=== PATIENT | female | born 1960 | race African-American/Black ===

== ENCOUNTER 2018-08-03 12:40 | Emergency (ER) | payer BC, OTHER ==
[2018-08-03 12:57] VITALS: BMI 54.3
[2018-08-03] MEDS ORDERED: amLODIPine BESYLATE 5 MG TABLET (FP) PO ONE (12:58)
[2018-08-03] MEDS ORDERED: ACETAMINOPHEN 500 MG TABLET (FP) PO ONE (12:59)
--- NOTE | 2018-08-03 13:08 | PDOC ---
Attending Attestation - Resident Resident Name: YoSae lindsey - ED Attending Attestation I have performed the following: I have examined & evaluated the patient, The case was reviewed & discussed with the resident, I agree w/resident's findings & plan, Exceptions are as noted - HPI HPI: 08/03/18 13:07 58y F hx of obesity, htn, presenst with concern for elevated BP. Pt states she felt alittle lightheaded and mild head pressure, which is usually indicative of elevated BP, so came in for evaluation. She was at her sisters and didnt have access to a BP monitor. The patient denies any headache, nausea, vomiting, vision changes, numbness, tingling, weakness, chest pain, shortness of breath, leg swelling, hemoptysis, fever, chills, cough, diarrhea, melena, bpr. Patient states she frequently has similar symptoms when her blood pressure is high. Shee states she has been using her blood pressure medications as prescribed including this morning. Rates her blood pressures usually in the high normal range with SBP of 140. PMD is Dr. Eckert. - Physicial Exam PE: 08/03/18 13:46 GENERAL: The patient is awake, alert, and fully oriented, Nontoxic - in no acute distress, morbidly obese HEAD: Normocephalic, atraumatic. EYES: extraocular movements intact, sclera anicteric, conjunctiva clear. ENT: Normal voice, Moist mucous membranes. NECK: Normal range of motion, supple LUNGS: Breath sounds equal, clear to auscultation bilaterally. No wheezes, no rhonchi, no rales. HEART: Regular rate and rhythm, normal S1 and S2 without murmur, rub or gallop. ABDOMEN: Soft, nontender, No guarding, no rebound. . No CVA tenderness EXTREMITIES: Normal range of motion, no edema. NEUROLOGICAL: No facial assymetry, Normal speech, moving all 4 extremities spontaneously and symmetrically PSYCH: Normal mood, normal affect. SKIN: Warm, Dry, normal turgor, - Medical Decision Making 08/03/18 13:47 relatively asypmtomatic htn will ck screening blood work will ck ekg will reassess her BP Heart Score/ECG Review - ECG Impressions Comment:: 08/03/18 13:47 Twelve-lead EKG was performed and reviewed by me. There is normal sinus rhythm with a normal rate. rate of 80 The axis is normal. The intervals are normal. abnormal r wave pgroession
[2018-08-03] MEDS ORDERED: ACETAMINOPHEN 325 MG TABLET (FP) ONE (13:18)
[2018-08-03] MEDS ORDERED: amLODIPine BESYLATE 5 MG TABLET (FP) ONE (13:18)
[2018-08-03 13:34] LABS: INR 0.99 (0.83-1.09); PROTHROMBIN TIME (PATIENT) 11.7 SEC (9.7-13.0)
[2018-08-03 13:43] LABS: BASO % 1.2 % (0-2.0); EOS % 1.6 % (0-4.5); HEMATOCRIT 35.3 % (32.4-45.2); HEMOGLOBIN 11.2 GM/dL (10.7-15.3); LYMPH % 22.4 % (8-40); MCH 25.9 pg (25.7-33.7); MCHC 31.7 g/dl (32.0-36.0); MEAN CELL VOLUME 81.5 fl (80-96); MEAN PLT VOLUME 9.5 fl (7.5-11.1); MONO % 7.7 % (3.8-10.2); NEUT % 67.1 % (42.8-82.8); PLATELET COUNT 262 K/MM3 (134-434); RBC 4.33 M/mm3 (3.60-5.2); RDW 14.9 % (11.6-15.6); WHITE BLOOD COUNT 7.7 K/mm3 (4.0-10.0)
[2018-08-03 13:55] LABS: ALBUMIN 3.1 g/dl (3.4-5.0); ALK PHOS 134 U/L (45-117); ANION GAP 7 MMOL/L (8-16); BILIRUBIN,TOTAL 0.2 mg/dL (0.2-1); BLOOD UREA NITROGEN 12 mg/dL (7-18); CALCIUM 8.1 mg/dL (8.5-10.1); CHLORIDE 105 mmol/L (98-107); CO2 26 mmol/L (21-32); CREATININE 0.8 mg/dL (0.55-1.3); GLUCOSE,RANDOM 130 mg/dL (74-106); MAGNESIUM 1.7 mg/dL (1.8-2.4); POTASSIUM 4.2 mmol/L (3.5-5.1); SGOT/AST 20 U/L (15-37); SGPT/ALT 28 U/L (13-61); SODIUM 138 mmol/L (136-145); TOT PROT 7.2 g/dl (6.4-8.2)
--- NOTE | 2018-08-03 14:15 | PDOC ---
History of Present Illness - General History Source: Patient Exam Limitations: No Limitations - History of Present Illness Initial Comments: 08/03/18 14:11 Patient is a 58F with history of morbid obesity and htn here today with a presyncopal episode. Patient states that she feels like her blood pressure is high because he felt light headed and transiently weak. No confusion afterwards. No vertigo. Patient states that she has a mild headache at this time as well. Denies chest pain, shortness of breath, leg swelling, prior blood clots, recent travel. Denies fevers, chills, nausea, vomiting, cough. <Sae Chandra - Last Filed: 08/03/18 14:17> <Delgado Magaña - Last Filed: 08/03/18 15:25> - General Chief Complaint: Blood Pressure Problem Stated Complaint: BLOOD PRESSURE PROBLEM Time Seen by Provider: 08/03/18 12:50 Past History - Past Medical History Cardiac Disorders: Yes (chest pain, cardiac cath hx) COPD: No HTN: Yes - Surgical History Cardiac Surgery: Yes (CARDIAC CATH) - Immunization History Td Vaccination: No Immunization Up to Date: No - Suicide/Smoking/Psychosocial Hx Smoking Status: No Smoking History: Never smoked Have you smoked in the past 12 months: No Number of Cigarettes Smoked Daily: 0 Hx Alcohol Use: No Drug/Substance Use Hx: No Substance Use Type: None Hx Substance Use Treatment: No <Sae Chandra - Last Filed: 08/03/18 14:17> <Delgado Magaña - Last Filed: 08/03/18 15:25> - Past Medical History Allergies/Adverse Reactions: Allergies Allergy/AdvReac Type Severity Reaction Status Date / Time No Known Allergies Allergy Verified 08/03/18 12:42 Home Medications: Ambulatory Orders Amlodipine Besylate 2.5 mg PO DAILY 08/03/18 Aspirin 81 mg PO ONCE 08/03/18 Carvedilol [Coreg -] 12.5 mg PO BID 08/03/18 Hydrochlorothiazide [Hctz -] 25 mg PO DAILY 08/03/18 Review of Systems - Review of Systems Comments:: 08/03/18 14:13 GENERAL/CONSTITUTIONAL: No fever or chills. No weakness. HEAD, EYES, EARS, NOSE AND THROAT: No change in vision.No sore throat. CARDIOVASCULAR: No chest pain or shortness of breath RESPIRATORY: No cough, wheezing, or hemoptysis. GASTROINTESTINAL: No nausea, vomiting, diarrhea or constipation. GENITOURINARY: No dysuria, frequency, or change in urination. MUSCULOSKELETAL: No joint or muscle swelling or pain. No neck or back pain. SKIN: No rash NEUROLOGIC: No headache, vertigo, loss of consciousness, or change in strength/ sensation. ENDOCRINE: No increased thirst. No abnormal weight change HEMATOLOGIC/LYMPHATIC: No anemia, easy bleeding, or history of blood clots. ALLERGIC/IMMUNOLOGIC: No hives or skin allergy. <Sae Chandra - Last Filed: 08/03/18 14:17> *Physical Exam - Vital Signs Last Vital Signs Temp Pulse Resp BP Pulse Ox 98.4 F 85 20 170/83 98 08/03/18 12:42 08/03/18 12:42 08/03/18 12:42 08/03/18 12:42 08/03/18 12:42 - Physical Exam Comments: 08/03/18 14:13 GENERAL: Awake, alert, and fully oriented, in no acute distress, obese HEAD: No signs of trauma, normocephalic, atraumatic EYES: PERRLA, EOMI, sclera anicteric, conjunctiva clear ENT: Auricles normal inspection, hearing grossly normal, nares patent, oropharynx clear without exudates. Moist mucosa NECK: Normal ROM, supple, no lymphadenopathy, JVD, or masses LUNGS: No distress, speaks full sentences, clear to auscultation bilaterally HEART: Regular rate and rhythm, normal S1 and S2, no murmurs, rubs or gallops, peripheral pulses normal and equal bilaterally. ABDOMEN: Soft, nontender, normoactive bowel sounds. No guarding, no rebound. No masses EXTREMITIES: Normal inspection, Normal range of motion, no edema. No clubbing or cyanosis. NEUROLOGICAL: Cranial nerves II through XII grossly intact. Normal speech, normal gait, no focal sensorimotor deficits SKIN: Warm, Dry, normal turgor, no rashes or lesions noted. <Sae Chandra - Last Filed: 08/03/18 14:17> - Vital Signs Last Vital Signs Temp Pulse Resp BP Pulse Ox 98.4 F 85 20 170/83 98 08/03/18 12:42 08/03/18 12:42 08/03/18 12:42 08/03/18 12:42 08/03/18 12:42 <Delgado Magaña - Last Filed: 08/03/18 15:25> ED Treatment Course - LABORATORY CBC & Chemistry Diagram: 08/03/18 13:10 08/03/18 13:10 - ADDITIONAL ORDERS Additional order review: Laboratory Results 08/03/18 08/03/18 13:10 13:10 PT with INR 11.70 INR 0.99 Sodium 138 Potassium 4.2 Chloride 105 Carbon Dioxide 26 Anion Gap 7 L BUN 12 Creatinine 0.8 Creat Clearance w eGFR > 60 Random Glucose 130 H Calcium 8.1 L Magnesium 1.7 L Total Bilirubin 0.2 AST 20 ALT 28 Alkaline Phosphatase 134 H Creatine Kinase 318 H Troponin I < 0.02 Total Protein 7.2 Albumin 3.1 L 08/03/18 13:10 RBC 4.33 MCV 81.5 MCHC 31.7 L RDW 14.9 MPV 9.5 Neutrophils % 67.1 Lymphocytes % 22.4 D Monocytes % 7.7 Eosinophils % 1.6 Basophils % 1.2 - RADIOLOGY Radiology Studies Ordered: Category Date Time Status CHEST PA & LAT [RAD] Stat Radiology 08/03/18 12:58 Ordered - Medications Given in the ED: ED Medications Discontinued Medications Generic Name Dose Route Start Last Admin Trade Name Yolande PRN Reason Stop Dose Admin Acetaminophen 975 mg 08/03/18 12:59 08/03/18 13:21 Tylenol - PO 08/03/18 13:00 975 mg ONCE ONE Administration Amlodipine Besylate 5 mg 08/03/18 12:58 08/03/18 13:20 Norvasc - PO 08/03/18 12:59 5 mg ONCE ONE Administration <Sae Chandra - Last Filed: 08/03/18 14:17> - LABORATORY CBC & Chemistry Diagram: 08/03/18 13:10 08/03/18 13:10 - ADDITIONAL ORDERS Additional order review: Laboratory Results 08/03/18 08/03/18 13:10 13:10 PT with INR 11.70 INR 0.99 Sodium 138 Potassium 4.2 Chloride 105 Carbon Dioxide 26 Anion Gap 7 L BUN 12 Creatinine 0.8 Creat Clearance w eGFR > 60 Random Glucose 130 H Calcium 8.1 L Magnesium 1.7 L Total Bilirubin 0.2 AST 20 ALT 28 Alkaline Phosphatase 134 H Creatine Kinase 318 H Creatine Kinase Index 1.2 CK-MB (CK-2) 4.1 H Troponin I < 0.02 Total Protein 7.2 Albumin 3.1 L 08/03/18 13:10 RBC 4.33 MCV 81.5 MCHC 31.7 L RDW 14.9 MPV 9.5 Neutrophils % 67.1 Lymphocytes % 22.4 D Monocytes % 7.7 Eosinophils % 1.6 Basophils % 1.2 - Medications Given in the ED: ED Medications Discontinued Medications Generic Name Dose Route Start Last Admin Trade Name Yolande PRN Reason Stop Dose Admin Acetaminophen 975 mg 08/03/18 12:59 08/03/18 13:21 Tylenol - PO 08/03/18 13:00 975 mg ONCE ONE Administration Amlodipine Besylate 5 mg 08/03/18 12:58 08/03/18 13:20 Norvasc - PO 08/03/18 12:59 5 mg ONCE ONE Administration <Delgado Magaña - Last Filed: 08/03/18 15:25> Medical Decision Making - Medical Decision Making 08/03/18 14:13 Patient is 58F here today with headache and presyncope. Vitals notable for BP 170/83. Given 5 of amlodipine, patient's home blood pressure. Headache is mild, no red flags for bleed mass. Will do cardiac workup and likely discharge with outpatient follow up. EKG shows normal sinus rhythm with rate of 80. No st elevations/depressions. Normal axis. Normal intervals. No significant t wave abnormalities. 08/03/18 14:15 Laboratory Tests 08/03/18 08/03/18 13:10 13:10 WBC 7.7 Hgb 11.2 Plt Count 262 BUN 12 Creatinine 0.8 Troponin I < 0.02 CBC normal. CMP reassuring. Troponin undetectable. Pending CXR. 08/03/18 14:17 Headache resolved. <Sae Chandra - Last Filed: 08/03/18 14:17> *DC/Admit/Observation/Transfer <Sae Chandra - Last Filed: 08/03/18 14:17> - Discharge Dispostion Decision to Admit order: No <Delgado Magaña - Last Filed: 08/03/18 15:25> Diagnosis at time of Disposition: Hypertension Qualifiers: Hypertension type: essential hypertension Qualified Code(s): I10 - Essential ( primary) hypertension - Discharge Dispostion Disposition: HOME Condition at time of disposition: Improved - Referrals Referrals: Belkis Eckert [Primary Care Provider] - - Patient Instructions Printed Discharge Instructions: DI for High Blood Pressure Additional Instructions: Return to the emergency department immediately with ANY new, persistent or worsening symptoms. You MUST call and follow up with Dr. Eckert in 3-4 days for further evaluation of your symptoms. Results were discussed with you. Please make sure your doctor reviews the results of your emergency evaluation. If you had any xrays during your visit, it was read preliminarily by myself, a Radiologist will review it and if there are any additional findings we will call you. Print Language: HUNGARIAN - Post Discharge Activity
[2018-08-03 17:06] VITALS: BP 161/86; PULSE 77; TEMP 98.2
--- NOTE | 2018-08-04 19:04 | EKG ---
Test Reason : Blood Pressure : / mmHG Vent. Rate : 080 BPM Atrial Rate : 080 BPM P-R Int : 164 ms QRS Dur : 074 ms QT Int : 394 ms P-R-T Axes : 058 000 017 degrees QTc Int : 454 ms NORMAL SINUS RHYTHM POSSIBLE LEFT ATRIAL ENLARGEMENT BORDERLINE ECG WHEN COMPARED WITH ECG OF 05-MAR-2015 21:26, NO SIGNIFICANT CHANGE WAS FOUND Confirmed by LUCIO PALACIOS MD ([id number]) on 08/04/2018 7:03:38 PM Referred By: Confirmed By:LUCIO PALACIOS MD
== END 2018-08-03 17:07 | disposition home or self-care (01) ==
LOC: JER 12:40
DX: I10 Essential (primary) hypertension (principal); E66.01 Morbid (severe) obesity due to excess calories; Z68.43 Body mass index [BMI] 50.0-59.9, adult
CPT/HCPCS: 36415; 71046-TC-FY; 80053; 82550; 82553; 83735; 84484; 85025; 85610; 93005; 93010; 99284-25

== ENCOUNTER 2019-06-18 10:52 | Emergency (ER) | payer BC, OTHER ==
[2019-06-18 10:59] VITALS: TEMP 98.2; BMI 57.6
--- NOTE | 2019-06-18 11:22 | PDOC ---
History of Present Illness - General Chief Complaint: Injury Stated Complaint: FALL Time Seen by Provider: 06/18/19 11:05 History Source: Patient Exam Limitations: Clinical Condition - History of Present Illness Initial Comments: 06/18/19 11:21 Patient with no significant past medical history present with complaint of pain to right lower rib cage and abrasion to right elbow status post trip and fall on the curbside bracing herself with the right elbow and falling hitting right chest and breasts. Denies shortness of breath, hitting head or loss of consciousness. Denies dizziness, nausea vomiting or change in vision. Denies any other symptoms Occurred: reports: just prior to arrival Severity: reports: mild Pain Location: reports: chest (right ribcage) Method of Injury: Yes: fall Modifying Factors: improves with: None Loss of Consciousness: no loss of consciousness Associated Symptoms (Fall): denies symptoms Past History - Past Medical History Allergies/Adverse Reactions: Allergies Allergy/AdvReac Type Severity Reaction Status Date / Time No Known Allergies Allergy Verified 06/18/19 10:59 Home Medications: Ambulatory Orders Amlodipine Besylate 2.5 mg PO DAILY 08/03/18 Aspirin 81 mg PO ONCE 08/03/18 Carvedilol [Coreg -] 12.5 mg PO BID 08/03/18 Hydrochlorothiazide [Hctz -] 25 mg PO DAILY 08/03/18 Cardiac Disorders: Yes (chest pain, cardiac cath hx) COPD: No HTN: Yes - Surgical History Cardiac Surgery: Yes (CARDIAC CATH) - Immunization History Td Vaccination: No Immunization Up to Date: No - Psycho Social/Smoking Cessation Hx Smoking Status: No Smoking History: Never smoked Have you smoked in the past 12 months: No Number of Cigarettes Smoked Daily: 0 Hx Alcohol Use: No Drug/Substance Use Hx: No Substance Use Type: None Hx Substance Use Treatment: No Review of Systems - Review of Systems Able to Perform ROS?: Yes Is the patient limited Korean proficient: No Constitutional: No: Weakness HEENTM: No: Symptoms Reported, See HPI, Eye Pain, Blurred Vision, Tearing, Recent change in vision, Double Vision, Cataracts, Ear Pain, Ocular Prothesis, Ear Discharge, Nose Pain, Nose Congestion, Tinnitus, Nose Bleeding, Hearing Loss , Throat Pain, Throat Swelling, Mouth Pain, Dental Problems, Difficulty Swallowing, Mouth Swelling, Other Respiratory: No: Symptoms reported, See HPI, Cough, Orthopnea, Shortness of Breath, SOB with Exertion, SOB at Rest, Stridor, Wheezing, Productive cough, Hemoptysis, Other Cardiac (ROS): Yes: Symptoms Reported, See HPI, Chest Pain (right ribcage pain) . No: Edema, Irregular Heart Rate, Lightheadedness, Palpitations, Syncope, Chest Tightness, Other ABD/GI: No: Nausea, Vomiting Musculoskeletal: Yes: Symptoms Reported, See HPI, Muscle Pain (right ribcage pain) Integumentary: No: Symptoms Reported, Bruising, Change in Color, Erythema Neurological: No: Symptoms reported, Weakness, Unsteady Gait, Ataxia, Dizziness All Other Systems: Reviewed and Negative *Physical Exam - Vital Signs Last Vital Signs Temp Pulse Resp BP Pulse Ox 98.2 F 81 16 180/98 H 96 06/18/19 10:56 06/18/19 10:56 06/18/19 10:56 06/18/19 10:56 06/18/19 10:56 - Physical Exam Comments: 06/18/19 11:18 GENERAL: Well developed, well nourished. Awake and alert. No acute distress. CARDIOVASCULAR: Regular rate and rhythm. No murmurs, rubs, or gallops. PULMONARY: No evidence of respiratory distress. Lungs clear to auscultation bilaterally. No wheezing, rales or rhonchi. ABDOMINAL: Soft. Non-tender. Non-distended. No rebound or guarding. No organomegaly. Normoactive bowel sounds MUSCULOSKELETAL : mild tenderness over the lower right rib cage of lateral T10- T12 of thoracic spine . No bony deformities . Skin bruising or ecchymosis of chest wall SKIN: Warm and dry. Normal capillary refill. Small 1 cm area of superficial abrasion to right elbow. No bruising or ecchymosis to chest wall. NEUROLOGICAL: Alert, awake, appropriate. No motor deficits in the lower extremities. Gait is normal without ataxia. PSYCHIATRIC: Cooperative. Good eye contact. Appropriate mood and affect. General Appearance: Yes: Nourished, Appropriately Dressed. No: Apparent Distress ED Treatment Course - RADIOLOGY Radiology Studies Ordered: Category Date Time Status CHEST - PA [RAD] Stat Radiology 06/18/19 11:15 Ordered RIBS RIGHT SIDE [RAD] Stat Radiology 06/18/19 11:15 Ordered Medical Decision Making - Medical Decision Making Medical Decision Making: Patient with no significant past medical history present with complaint of pain to right lower rib cage and abrasion to right elbow status post trip and fall on the curbside bracing herself with the right elbow and falling hitting right chest and breasts. Denies shortness of breath, hitting head or loss of consciousness. Denies dizziness, nausea vomiting or change in vision. Denies any other symptoms Exam significant for mild tenderness to right lower rib cage with no skin bruising or ecchymosis or chest wall. Small area of superficial abrasion to right elbow otherwise normal exam. Patient symptoms likely chest contusion with elbow abrasion. Checks x-ray and rib series x-ray ordered to rule out rib fracture X-ray x-ray and rib x-ray shows no acute fracture. Patient's symptoms likely rib contusion. Motrin 800 mg by mouth ordered for pain. Patient is stable for discharge to take home Motrin as needed for pain and hot compress with strict follow-up. Plan discussed with patient and patient agrees with plan. Patient is stable for discharge Discharge - Discharge Information Problems reviewed: Yes Clinical Impression/Diagnosis: Abrasion of right elbow, initial encounter Contusion of right chest wall Qualifiers: Encounter type: initial encounter Qualified Code(s): S20.211A - Contusion of right front wall of thorax, initial encounter Condition: Stable Disposition: HOME - Admission No - Follow up/Referral - Patient Discharge Instructions Patient Printed Discharge Instructions: DI for Contusion, DI for Rib Contusion Additional Instructions: Your checks x-ray and rib x-ray shows no acute fracture. The symptoms likely contusion from the fall. Take Motrin as needed for pain. Apply warm compresses to rib cage 2-3 times a day as needed for pain. Come back to emergency room if shortness of breath, chest pains, dizziness. - Post Discharge Activity Work/Back to School Note: Back to Work
[2019-06-18] MEDS ORDERED: IBUPROFEN 400 MG TABLET (FP) PO ONE ×2 (11:50→11:52)
[2019-06-18 12:25] VITALS: BP 155/85; PULSE 80
== END 2019-06-18 12:28 | disposition home or self-care (01) ==
LOC: JERFT 10:52
DX: S50.311A Abrasion of right elbow, initial encounter (principal); S20.211A Contusion of right front wall of thorax, initial encounter; W18.39XA Other fall on same level, initial encounter; Y93.89 Activity, other specified; Y92.89 Other specified places as the place of occurrence of the external cause; I10 Essential (primary) hypertension
CPT/HCPCS: 71045-TC-FY; 71101-TC-RT-FY; 99282-25

== ENCOUNTER 2020-11-10 11:22 | Emergency (ER) | payer BC, OTHER ==
[2020-11-10 11:28] VITALS: BMI 55.5
[2020-11-10 14:08] LABS: BASO % 1.7 % (0-2.0); HEMATOCRIT 34.7 % (32.4-45.2); HEMOGLOBIN 11.3 GM/dL (10.7-15.3); LYMPH % 23.4 % (8-40); MCH 26.6 pg (25.7-33.7); MCHC 32.7 g/dl (32.0-36.0); MEAN CELL VOLUME 81.2 fl (80-96); MEAN PLT VOLUME 9.5 fl (7.5-11.1); NEUT % 65.9 % (42.8-82.8); PLATELET COUNT 272 K/MM3 (134-434); RBC 4.27 M/mm3 (3.60-5.2); RDW 15.7 % (11.6-15.6); WHITE BLOOD COUNT 8.4 K/mm3 (4.0-10.0)
[2020-11-10] MEDS ORDERED: ACETAMINOPHEN 325 MG TABLET (FP) PO ONE (14:17)
[2020-11-10 14:22] VITALS: BP 174/88
[2020-11-10] MEDS ORDERED: ACETAMINOPHEN 325 MG TABLET (FP) ONE (14:23)
[2020-11-10 14:24] LABS: POTASSIUM 4.2 mmol/L (3.5-5.1)
[2020-11-10 14:27] LABS: ALBUMIN 3.6 g/dl (3.4-5.0); BLOOD UREA NITROGEN 7.7 mg/dL (7-18)
[2020-11-10 14:30] LABS: CREATININE 0.8 mg/dL (0.55-1.3)
[2020-11-10 14:31] LABS: BILIRUBIN,TOTAL 0.5 mg/dL (0.2-1)
[2020-11-10] MEDS ORDERED: CLINDAMYCIN 900 MG PREMIX IVPB 900 MG/50 ML BAG IVPB ONE ×2 (17:38→17:47)
[2020-11-10 19:10] VITALS: PULSE 86; TEMP 98.6
== END 2020-11-10 19:05 | disposition short-term general hospital (02) ==
LOC: JER 11:22
PROC: 3E033GC Introduction of Other Therapeutic Substance into Peripheral Vein, Percutaneous Approach (ICD-10-PCS; principal; 2020-11-10)
DX: K12.2 Cellulitis and abscess of mouth (principal); M60.9 Myositis, unspecified; E04.9 Nontoxic goiter, unspecified
CPT/HCPCS: 36415; 70491-TC; 80053; 84443; 85025; 99285-25; C9803; U0003

== ENCOUNTER 2023-03-18 12:45 | Emergency (ER) | payer BC, OTHER ==
[2023-03-18 13:03] VITALS: BP 178/94; PULSE 81; RESP 18; TEMP 97.6; BMI 57.9
[2023-03-18] MEDS ORDERED: IBUPROFEN 600 MG TABLET (FP) PO ONE ×2 (13:16→13:51)
== END 2023-03-18 15:12 | disposition home or self-care (01) ==
LOC: JER 12:45
DX: M79.662 Pain in left lower leg (principal)
CPT/HCPCS: 73562-TC-LT-FY; 93971-TC; 99284-25

== ENCOUNTER 2023-07-27 12:09 | Observation (INO) | payer BC, OTHER ==
[2023-07-27] MEDS ORDERED: NITROGLYCERIN SUBLINGUAL 1/150 0.4 MG TAB SL ONE ×2 (14:11→18:49)
[2023-07-27] MEDS ORDERED: NITROGLYCERIN SUBLINGUAL 1/150 0.4 MG TAB ONE (15:00)
[2023-07-27 15:24] LABS: BASO % 1.3 % (0-2.0); EOS % 3.7 % (0-4.5); HEMATOCRIT 34.4 % (32.4-45.2); LYMPH % 23.2 % (8-40); MEAN CELL VOLUME 81.3 fl (80-96); MEAN PLT VOLUME 8.6 fl (7.5-11.1); NEUT % 61.8 % (42.8-82.8); PLATELET COUNT 285 10^3/uL (134-434); RBC 4.23 M/mm3 (3.60-5.2); RDW 14.5 % (11.6-15.6); WHITE BLOOD COUNT 6.2 K/mm3 (4.0-10.0)
[2023-07-27 15:48] LABS: N-TERMINAL BNP 629.4 pg/ml (5-125)
[2023-07-27 15:54] LABS: ALBUMIN 3.1 g/dl (3.4-5.0); BILIRUBIN,TOTAL 0.3 mg/dL (0.2-1); BLOOD UREA NITROGEN 9.7 mg/dL (7-18); CALCIUM 8.6 mg/dL (8.5-10.1); CREATININE 0.8 mg/dL (0.55-1.3); MAGNESIUM 1.7 mg/dL (1.8-2.4); POTASSIUM 3.9 mmol/L (3.5-5.1)
[2023-07-27] MEDS ORDERED: DOXYCYCLINE INJECTION 100 MG in DEXTROSE 5%-WATER 100 ML IVPB ONE (19:06)
[2023-07-27] MEDS ORDERED: ASPIRIN 81 MG CHEWABLE TABLETS PO ONE (22:45)
[2023-07-27] MEDS ORDERED: CARVEDILOL 12.5 MG TABLET (FP) PO ONE (23:04)
[2023-07-27] MEDS ORDERED: ISOSORBIDE MONONITRATE 30 MG TAB.SR.24H (FP) PO SCH (23:06)
[2023-07-27 23:51] VITALS: BMI 57.9
[2023-07-28 08:36] LABS: EOS % 4.2 % (0-4.5); HEMATOCRIT 30.3 % (32.4-45.2); HEMOGLOBIN 10.1 GM/dL (10.7-15.3); LYMPH % 27.8 % (8-40); MCH 26.6 pg (25.7-33.7); MCHC 33.4 g/dl (32.0-36.0); MEAN CELL VOLUME 79.9 fl (80-96); MEAN PLT VOLUME 8.7 fl (7.5-11.1); PLATELET COUNT 233 10^3/uL (134-434); RBC 3.79 M/mm3 (3.60-5.2); RDW 14.7 % (11.6-15.6); WHITE BLOOD COUNT 5.2 K/mm3 (4.0-10.0)
[2023-07-28 08:47] LABS: POTASSIUM 3.9 mmol/L (3.5-5.1)
[2023-07-28 08:51] LABS: BLOOD UREA NITROGEN 11.7 mg/dL (7-18); CALCIUM 7.9 mg/dL (8.5-10.1)
[2023-07-28 08:52] LABS: ALBUMIN 2.8 g/dl (3.4-5.0)
[2023-07-28 08:55] LABS: CREATININE 0.8 mg/dL (0.55-1.3)
[2023-07-28 08:56] LABS: BILIRUBIN,TOTAL 0.4 mg/dL (0.2-1); TOT PROT 6.4 g/dl (6.4-8.2)
[2023-07-28] MEDS: amLODIPine BESYLATE 5 MG TABLET (FP) PO SCH (09:16)
[2023-07-28] MEDS: HEPARIN NA (PORCINE) 5,000 UNITS/ML 1ML VIAL SQ SCH ×2 (09:16→22:05)
[2023-07-28] MEDS: HYDROCHLOROTHIAZIDE 25 MG TABLET (FP) PO SCH (09:16)
[2023-07-28] MEDS: CEFTRIAXONE 1 GM in DEXTROSE 5%-WATER - 50 ML IVPB SCH (09:23)
[2023-07-28] MEDS: AZITHROMYCIN IVPB 500 MG/250 ML BAG IVPB SCH (09:30)
[2023-07-28] MEDS ORDERED: CARVEDILOL 12.5 MG TABLET (FP) PO SCH (10:00)
[2023-07-29] MEDS: VALSARTAN 80 MG TABLET PO SCH (10:56)
[2023-07-29] MEDS: HEPARIN NA (PORCINE) 5,000 UNITS/ML 1ML VIAL SQ SCH ×2 (10:57→21:43)
[2023-07-29] MEDS: CEFTRIAXONE 1 GM in DEXTROSE 5%-WATER - 50 ML IVPB SCH (10:57)
[2023-07-29] MEDS: amLODIPine BESYLATE 5 MG TABLET (FP) PO SCH (10:57)
[2023-07-29] MEDS: HYDROCHLOROTHIAZIDE 25 MG TABLET (FP) PO SCH (10:57)
[2023-07-29] MEDS: NEBIVOLOL 5 MG TABLET (FP) PO SCH (10:57)
[2023-07-29] MEDS: AZITHROMYCIN IVPB 500 MG/250 ML BAG IVPB SCH (10:57)
[2023-07-30] MEDS ORDERED: amLODIPine BESYLATE 5 MG TABLET (FP) PO ONE (00:45)
[2023-07-30] MEDS: NEBIVOLOL 5 MG TABLET (FP) PO SCH (09:22)
[2023-07-30] MEDS: HYDROCHLOROTHIAZIDE 25 MG TABLET (FP) PO SCH (09:22)
[2023-07-30] MEDS: VALSARTAN 80 MG TABLET PO SCH (09:22)
[2023-07-30] MEDS: amLODIPine BESYLATE 5 MG TABLET (FP) PO SCH (09:23)
[2023-07-30] MEDS: HEPARIN NA (PORCINE) 5,000 UNITS/ML 1ML VIAL SQ SCH (09:23)
[2023-07-30 09:34] VITALS: RESP 18
[2023-07-30 15:29] VITALS: BP 123/52; PULSE 84; TEMP 97.9
== END 2023-07-30 15:00 | disposition home or self-care (01) ==
LOC: JER 12:09 → JERBED 19:26 → J8W 20:04
PROVIDERS: ADMIT Internal Medicine; ATTEND Internal Medicine
PROC: 3E03329 Introduction of Other Anti-infective into Peripheral Vein, Percutaneous Approach (ICD-10-PCS; principal; 2023-07-27)
PROC: 3E023GC Introduction of Other Therapeutic Substance into Muscle, Percutaneous Approach (ICD-10-PCS; 2023-07-27)
DX: R06.00 Dyspnea, unspecified (principal); I25.10 Atherosclerotic heart disease of native coronary artery without angina pectoris; I10 Essential (primary) hypertension; Z68.43 Body mass index [BMI] 50.0-59.9, adult; I11.0 Hypertensive heart disease with heart failure; J45.909 Unspecified asthma, uncomplicated; D64.9 Anemia, unspecified; E66.01 Morbid (severe) obesity due to excess calories; R94.8 Abnormal results of function studies of other organs and systems; J84.9 Interstitial pulmonary disease, unspecified
CPT/HCPCS: 0241U-QW; 36415; 71046-TC-FY; 71275-TC; 80053; 82550; 82553; 83735; 83880; 84484; 85025; 85379; 86480; 87899; 93005; 93010; 99285-25; G0378; J1644; Q9967